=== PATIENT | female | born 1945 | race Caucasian/White ===

== ENCOUNTER 2022-04-01 07:48 | Emergency (ER) | payer MEDICARE, BC ==
[~2022-04-01] VITALS: Ht 162.6 cm; Wt 61.7 kg
--- NOTE | 2022-04-01 08:15 | NUR ---
pt triaged by me, roomed in , urine collected and sent to lab.
[2022-04-01 08:20] LABS: *BILIRUBIN,URIN NEGATIVE (NEGATIVE); *CLARITY,URINE CLEAR (CLEAR); *COLOR,URINE YELLOW (YELLOW); *KETONES,URINE NEGATIVE (NEGATIVE); *UROBILINOGEN,URINE 0.2 E.U./dl (NORMAL); LEUKOCYTE ESTERASE ,URINE NEGATIVE (NEGATIVE); NITRITE, URINE NEGATIVE (NEGATIVE); UGLUCOSE NEGATIVE (NEGATIVE)
[2022-04-01] MEDS ORDERED: KETOROLAC TROMETHAMINE 15 MG INJ ONE (08:29)
[2022-04-01] MEDS ORDERED: KETOROLAC TROMETHAMINE 15 MG INJ IM ONE (08:30)
[2022-04-01 08:32] LABS: HEMATOCRIT 40.9 % (31.2-41.9); MEAN CORPUSCULAR HEMOGLOBIN 30.9 uug (24.7-32.8); MEAN CORPUSCULAR VOLUME 90.7 fL (75.5-95.3); PLATELET COUNT (AUTO) 195 K/uL (179-408)
--- NOTE | 2022-04-01 08:37 | NUR ---
toradol 15mg IM given in left gluteal muscle, tolerated well.
[2022-04-01 09:12] LABS: *BLOOD, URINE TRACE (NEGATIVE)
[2022-04-01 09:15] LABS: BILIRUBIN,TOTAL 0.5 mg/dL (0.2-1.0); CREATININE 0.8 mg/dL (0.6-1.3); POTASSIUM 4.1 mmol/L (3.5-5.1); TOTAL PROTEIN, SERUM 7.3 g/dL (6.4-8.2)
[2022-04-01 09:19] LABS: BACTERIA,URINE NONE SEEN /HPF (NONE SEEN); RBC,URINE 0-3 /HPF (0-3); SQUAMOUS EPITHELIAL CELL,UR NONE SEEN /HPF (NONE SEEN); WBC,URINE NONE SEEN /HPF (0-3)
[2022-04-01] MEDS ORDERED: LIDOCAINE 5% PATCH TD ONE ×2 (11:00→11:02)
--- NOTE | 2022-04-01 11:10 | NUR ---
lidocaine 5% patch applied to left flank. Patient discharged to home in stable condition. Written and verbal after care instructions given. Patient verbalizes understanding of instructions. Stressed follow up or return to ER for worsening s/s.
== END 2022-04-01 11:20 | disposition home or self-care (01) ==
LOC: ER 07:49
DX: R10.30 Lower abdominal pain, unspecified (principal); M25.552 Pain in left hip; Z96.641 Presence of right artificial hip joint
CPT/HCPCS: 99284; 74176; 80053; 81001; 85025; 36415; 96372; J1885; A4663

== ENCOUNTER 2022-10-05 12:40 | Emergency (ER) | payer MEDICARE, BC ==
[~2022-10-05] VITALS: Ht 157.5 cm; Wt 50.8 kg
[2022-10-05] MEDS ORDERED: NITR0.4T48 SL (13:14)
[2022-10-05] MEDS ORDERED: ATOR40TA PO (13:14)
[2022-10-05] MEDS ORDERED: ASPI81TA31 PO (13:14)
[2022-10-05] MEDS ORDERED: TRAM50TA2 PO (13:14)
[2022-10-05] MEDS ORDERED: CLOP75TA15 PO (13:14)
[2022-10-05] MEDS ORDERED: NEOMY/BACITRA/POLYMYXIN B OINT UD PACKET TP ONE ×2 (13:45→13:52)
[2022-10-05] MEDS ORDERED: AMOX-430 PO (14:08)
--- NOTE | 2022-10-05 14:17 | NUR ---
PT WAS D/C'd TO HOME. D/C INSTRUCTIONS GIVEN TO THE PT BY DR HARDWICK.
[2022-10-05 14:18] VITALS: BP 135/73
== END 2022-10-05 14:21 | disposition home or self-care (01) ==
LOC: ER 12:40
DX: S80.811A Abrasion, right lower leg, initial encounter (principal); I10 Essential (primary) hypertension; E78.5 Hyperlipidemia, unspecified; I25.10 Atherosclerotic heart disease of native coronary artery without angina pectoris; Z79.82 Long term (current) use of aspirin; Z79.01 Long term (current) use of anticoagulants; Z79.899 Other long term (current) drug therapy; W55.03XA Scratched by cat, initial encounter; Y93.89 Activity, other specified; Y92.89 Other specified places as the place of occurrence of the external cause; Y99.8 Other external cause status
CPT/HCPCS: A4663

== ENCOUNTER 2022-10-07 10:16 | Emergency (ER) | payer MEDICARE, BC ==
[~2022-10-07] VITALS: Ht 157.5 cm; Wt 50.8 kg
[~2022-10-07 10:16] MED LIST: AMOX-430 PO; ASPI81TA31 PO; ATOR40TA PO; CLOP75TA15 PO; NITR0.4T48 SL; TRAM50TA2 PO
--- NOTE | 2022-10-07 10:47 | NUR ---
Patient discharged to home in stable condition. Written and verbal after care instructions given. Patient verbalizes understanding of instructions. Stressed follow up or return to ER for worsening s/s.
== END 2022-10-07 10:48 | disposition home or self-care (01) ==
LOC: ER 10:16
DX: S80.811D Abrasion, right lower leg, subsequent encounter (principal); I10 Essential (primary) hypertension; E78.5 Hyperlipidemia, unspecified; I25.10 Atherosclerotic heart disease of native coronary artery without angina pectoris; Z79.82 Long term (current) use of aspirin; Z79.01 Long term (current) use of anticoagulants; Z79.2 Long term (current) use of antibiotics; Z79.899 Other long term (current) drug therapy; W55.03XD Scratched by cat, subsequent encounter
CPT/HCPCS: A4663

== ENCOUNTER 2024-12-22 12:21 | Emergency (ER) | payer MEDICARE, BC ==
[~2024-12-22] VITALS: Ht 160 cm; Wt 58.1 kg
[2024-12-22 13:18] VITALS: BP 150/70; O2SAT 98
== END 2024-12-22 13:20 | disposition home or self-care (01) ==
LOC: ER 12:21
DX: S80.11XA Contusion of right lower leg, initial encounter (principal); E78.5 Hyperlipidemia, unspecified; I10 Essential (primary) hypertension; Z79.02 Long term (current) use of antithrombotics/antiplatelets; Z79.82 Long term (current) use of aspirin; Z88.7 Allergy status to serum and vaccine; Z95.5 Presence of coronary angioplasty implant and graft; Z96.641 Presence of right artificial hip joint; Z87.39 Personal history of other diseases of the musculoskeletal system and connective tissue; Z87.2 Personal history of diseases of the skin and subcutaneous tissue; X58.XXXA Exposure to other specified factors, initial encounter; Y93.89 Activity, other specified; Y92.89 Other specified places as the place of occurrence of the external cause; Y99.8 Other external cause status
CPT/HCPCS: A4606; A4663